=== PATIENT | male | born 1950 | race Caucasian/White ===

== ENCOUNTER → 2018-02-19 | Outpatient (CLI) | payer OTHER | LOC: FIMAGING 08:08 | PROVIDERS: ATTEND Internal Medicine Pulmonary Disease | DX: K31.89 Other diseases of stomach and duodenum (principal); K21.9 Gastro-esophageal reflux disease without esophagitis; J98.6 Disorders of diaphragm ==

== ENCOUNTER 2018-04-14 09:09 | Observation (INO) | payer OTHER ==
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
[2018-04-14] MEDS ORDERED: HEPARIN 1000 UNIT/1 ML MDV ONE (09:15)
[2018-04-14] MEDS ORDERED: BUPIVACAINE 0.25% 30 ML SDV ONE (09:15)
[2018-04-14] MEDS ORDERED: ceFAZolin 1 GM/5 ML SYR ONE (09:16)
[2018-04-14] MEDS ORDERED: cefOXitin SODIUM 2 GM in NS 100 ML IV ONE (09:17)
[2018-04-14] MEDS ORDERED: LR 1,000 ML IV ONE (09:18)
--- NOTE | 2018-04-14 10:09 | PDHPUP ---
History & Physical Update H&P update statement: This history and physical update is based on an assessment of the patient which was completed after admission or registration (within 24 hours), but prior to the surgery/procedure. H&P update: H&P reviewed & patient examined, no change in patient's condition since H&P completed
[2018-04-14] MEDS ORDERED: MIDAZOLAM 2 MG/2 ML VIAL IVP ONE (10:22)
--- NOTE | 2018-04-14 10:22 | PDANEPAE ---
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 seasonal allergies - Neurologic History Hx Cerebrovascular Accident: No Hx Seizures: No Hx Dementia: No - Endocrine History Hx Diabetes: No - Renal History Hx Renal Disorders: No - Liver History Hx Hepatic Disorders: No - Neurological & Psychiatric Hx Hx Neurological and Psychiatric Disorders: No - Cancer History Hx Cancer: No - Congenital Disorder History Hx Congenital Disorders: No - GI History Hx Gastrointestinal Disorders: Yes Gastrointestinal History Comment: reflux - Other Health History Other Health History: none - Chronic Pain History Chronic Pain: Yes (left knee) - Surgical History Prior Surgeries: none ANE Review of Systems Review of systems is: negative Review of Systems: - Exercise capacity Exercise capacity: >=4 METS METS (RN): 5 METS ANE Patient History - Allergies Allergies/Adverse Reactions: lidocaine Allergy (Verified 04/10/18 11:31) Rash trameel inj Allergy (Uncoded 04/10/18 17:42) Rash - Home Medications Home medications: home medication list seen and reviewed Home Medications: Albuterol [Proventil Inhaler HFA (*)] 1 - 2 puffs IH DAILY PRN 04/10/18 [Last Taken 04/14/18 06:00] Aspirin [Aspirin 81mg (*)] 162 mg PO DAILY 04/10/18 [Last Taken 04/10/18] Herbals/Supplements -Info Only 1 ea PO DAILY 04/10/18 [Last Taken 04/10/18] Tamsulosin HCl [Flomax 0.4 MG (*)] 0.4 mg PO BID 04/10/18 [Last Taken 04/14/18 06:00] guaiFENesin [Mucinex 600 MG (*)] 600 mg PO BID PRN 04/10/18 [Last Taken 04/12/18 ] Ranitidine HCl 04/14/18 [Last Taken 04/14/18 06:00] - NPO status NPO Status: no food or drink >8 hours NPO Since - Liquids (Date): 04/14/18 NPO Since - Liquids (Time): 06:00 NPO Since - Solids (Date): 04/13/18 NPO Since - Solids (Time): 19:30 - Smoking Hx Smoking Status: Never smoked - Family Anes Hx Family Hx Anesthesia Complications: none ANE Labs/Vital Signs - Vital Signs Vital Signs: reviewed preoperatively; see RN documention for details Blood Pressure: 100/76 Heart Rate: 64 Respiratory Rate: 16 O2 Sat (%): 93 Height: 182.88 cm Weight: 81.193 kg ANE Physical Exam - Airway Neck exam: FROM Mallampati Score: Class 1 Mouth exam: normal dental/mouth exam - Pulmonary Pulmonary: no respiratory distress - Cardiovascular Cardiovascular: regular rate and rhythym - ASA Status ASA Status: II ANE Anesthesia Plan Anesthesia Plan: general endotracheal anesthesia
[2018-04-14] MEDS ORDERED: fentaNYL 250 MCG/5 ML INJ ONE (10:26)
[2018-04-14] MEDS ORDERED: PROPOFOL/EMULSION 500 MG/50 ML BOTTLE IV ONE (10:27)
[2018-04-14] MEDS ORDERED: ONDANSETRON 4 MG/2 ML VIAL ONE (10:53)
[2018-04-14] MEDS ORDERED: DEXAMETHASONE 4 MG/ML VIAL ONE (10:53)
[2018-04-14] MEDS ORDERED: ePHEDrine SULFATE 25 MG/5 ML SYR ONE (11:12)
[2018-04-14] MEDS ORDERED: PHENYLEPHRINE HCL 100 MCG/ML SYR ONE (11:23)
[2018-04-14] MEDS ORDERED: SUGAMMADEX SODIUM 200 MG/2 ML VIAL IVP ONE (12:38)
[2018-04-14] MEDS ORDERED: KETOROLAC 30 MG/1 ML SDV ONE (12:41)
--- NOTE | 2018-04-14 12:58 | POSTOPPROG ---
Post Op Note Date of Operation: 04/14/18 Surgeon: Josh Avila [employer] Shop Attendant: Partha Anesthesiologist: Curtis Anesthesia: GET(General Endotracheal) Pre-op Diagnosis: Gastric volvulus Post-op Diagnosis: same Indication: Cough Procedure: Lap gastropexy Findings: No significant volvulus Inf/Abcess present in the surg proc area at time of surgery?: No Depth: Organ Space EBL: Minimal
[2018-04-14] MEDS ORDERED: ACETAMINOPHEN 325 MG TAB PO PRN (13:00)
[2018-04-14] MEDS ORDERED: oxyCODONE IR 5 MG TAB PO PRN ×2 (13:01→13:14)
[2018-04-14] MEDS ORDERED: ONDANSETRON 4 MG/2 ML VIAL IVP PRN ×2 (13:01→13:14)
[2018-04-14] MEDS ORDERED: ONDANSETRON DISINTEGRATING 4 MG TAB PO PRN (13:01)
[2018-04-14] MEDS ORDERED: NALOXONE HCL 0.4 MG/ML INJ IVP PRN (13:14)
[2018-04-14] MEDS ORDERED: fentaNYL 100 MCG/2 ML INJ ONE (13:14)
[2018-04-14] MEDS ORDERED: fentaNYL 100 MCG/2 ML INJ IVP PRN (13:14)
[2018-04-14] MEDS ORDERED: HYDROCODONE/APAP 5/325 TAB PO PRN (13:14)
[2018-04-14] MEDS ORDERED: HYDROmorphONE/DILAUDID 1 MG/ML INJ IVP PRN (13:14)
[2018-04-14] MEDS ORDERED: ALBUTEROL 3 ML DEYVIAL IH PRN (13:14)
[2018-04-14] MEDS ORDERED: NS 1,000 ML IV SCH (13:15)
[2018-04-14 15:44] VITALS: BP 106/75
--- NOTE | 2018-04-14 15:55 | POSTANESTH ---
Post Anesthetic Evaluation Cardiovascular Status: Normal, Stable Respiratory Status: Normal, Stable Level of Consciousness/Mental Status: Can Participate in Eval Pain Control: Adequate, Prn Tx Ordered Nausea/Vomiting Control: Adequate, Prn Tx Ordered Complications Possibly Related to Anesthesia: None Noted
--- NOTE | 2018-04-14 17:44 | SOAPPROG ---
SOAP Progress Note Assessment/Plan: Assessment: POSTOP GASTROPEXY: DOING WELL,/TOLERATING LIQUIDS, AFEBRILE, MINIMAL PAIN/ CHEST X-RAY OKAY Plan: HOME TONIGHT/INSTRUCTIONS GIVEN 04/14/18 17:42 Objective: Vital Signs Temp Pulse Resp BP Pulse Ox 35.6 C L 58 L 14 106/75 92 04/14/18 15:49 04/14/18 15:43 04/14/18 15:43 04/14/18 15:43 04/14/18 15:43 04/13/18 04/14/18 04/15/18 05:59 05:59 05:59 Intake Total 800 Output Total 300 Balance 500 ICD10 Worksheet Patient Problems: Problems Problem Status Onset Chronic gastric volvulus Acute - ICD10 Problem Qualifiers (1) Chronic gastric volvulus
--- NOTE | 2018-04-24 14:38 | GOP ---
[f rep st] OPERATIVE REPORT DATE OF OPERATION: 04/14/2018 SURGEON: Josh Avila MD PHARMACY TECHNICIAN INFUSION: Agatha Chavis NP. ANESTHESIOLOGIST: Dr. Acevedo. PREOPERATIVE DIAGNOSIS: Partial gastric volvulus, asymptomatic. POSTOPERATIVE DIAGNOSIS: Partial gastric volvulus, asymptomatic. PROCEDURE PERFORMED: Laparoscopic gastropexy. FINDINGS: The patient was found to have a markedly elevated right diaphragm in which the stomach rot ates up into that void. However, there were no ischemic changes or tightness or any definite volvulu s of the stomach on today's evaluation. ESTIMATED BLOOD LOSS: Negligible. DESCRIPTION OF PROCEDURE: The patient was taken to the operating room where he received a satisfacto ry general endotracheal anesthesia by Dr. Acevedo. He was placed in the supine position in a split le g manner, prepped and draped in the usual sterile fashion. A periumbilical incision was made. A Betsy ess needle inserted. Pneumoperitoneum was established. Trocar was introduced. Laparoscope introduc ed. Good visualization was obtained. Two other trocars were placed in the abdomen under direct visi on. The stomach was elevated up. It appeared to be quite mobile, but there were no ischemic changes or evidence of any hard twist. The GE junction was identified, as was the pylorus, and then the sto mach greater curvature was brought up to the anterior abdominal wall where it was pexied with multipl e interrupted 0 Ethibond sutures. This extended almost up to the gastroesophageal junction and certa inly included the cardia. Hemostasis was assured. Pneumoperitoneum was released. Trocars removed u nder direct vision. He tolerated the procedure quite well. Trocar sites were closed with 4-0 Vicryl subcuticular sutures and were infiltrated with 0.5% Marcaine. He tolerated the procedure well. COMPLICATIONS: None. DISPOSITION: He was taken to recovery room in good condition and reported to be . /[id number]/MODL
== END 2018-04-14 19:14 | disposition home or self-care (01) ==
LOC: F3N 09:09 → F3E 14:04
PROVIDERS: ADMIT Surgery; ATTEND Surgery
PROC: 0DV44ZZ Restriction of Esophagogastric Junction, Percutaneous Endoscopic Approach (ICD-10-PCS; principal; 2018-04-14 10:30)
DX: K31.89 Other diseases of stomach and duodenum (principal); K21.9 Gastro-esophageal reflux disease without esophagitis; J45.909 Unspecified asthma, uncomplicated
CPT/HCPCS: 43280; 71045; G0378; J0694; J1100; J1885; J2250; J2370; J2405; J2704; J3010

== ENCOUNTER 2018-11-24 18:34 | Emergency (ER) | payer OTHER ==
[2018-11-24 18:43] VITALS: BP 123/84
--- NOTE | 2018-11-24 19:13 | EDPHY ---
H & P Stated Complaint: floaters and flickering lights l eye since yesterday at 1pm Time Seen by Provider: 11/24/18 19:01 HPI/ROS: CHIEF COMPLAINT: Visual changes left eye HISTORY OF PRESENT ILLNESS: The patient is a 68-year-old healthy man with painless vision changes in his left eye that began yesterday around 1:00 a.m.. He states that he had a normal eye exam 6 months ago. He yesterday he noticed some flashing lights and dark spots floating in his left eye. That persisted today. He has called his writing tutor and has an appointment for tomorrow 10 :[address] Gerardo Garibay. He has not had any trauma. He has not had any discharge. No foreign body sensation. He is worried about his eye pressure. No headache. No buddhism area pain. No claudication. No recent colds or fevers. Severity: Moderate Modifying factors: None REVIEW OF SYSTEMS: Constitutional: denies: chills, fever, recent illness, recent injury EENTM: See HPI Respiratory: denies: cough, shortness of breath Cardiac: denies: chest pain, irregular heart rate, lightheadedness, palpitations Gastrointestinal/Abdominal: denies: abdominal pain, diarrhea, nausea, vomiting, blood streaked stools Genitourinary: denies: dysuria, frequency, hematuria, pain Musculoskeletal: denies: joint pain, muscle pain Skin: denies: lesions, rash, jaundice, bruising Neurological: denies: headache, numbness, paresthesia, tingling, dizziness, weakness Hematologic/Lymphatic: denies: blood clots, easy bleeding, easy bruising Immunologic/allergic: denies: HIV/AIDS, transplant 10 systems reviewed and negative except as noted EXAM: GENERAL: Well-appearing, well-nourished and in no acute distress. HEAD: Atraumatic, normocephalic. EYES: Pupils equal round and reactive to light, extraocular movements intact, sclera anicteric, conjunctiva are normal. Retina visualized on the right without difficulty with panoptic. Some red was visualized on the left but not all. There is a building dark spot on the lower half. Ultrasound is performed and it appears that there is particles of blood floating in the vitreous. No obvious detachment of the retina. The clots do moved and shift when he looks left and right. His visual acuity is 20/25 in the right and 2 blurry to assess in the left. Checked pressures with new Yamil-Pen and average of 15 on the right 16 on the left. ENT: TMs normal, nares patent, oropharynx clear without exudates. Moist mucous membranes. NECK: Normal range of motion, supple without lymphadenopathy or JVD. LUNGS: Breath sounds clear to auscultation bilaterally and equal. No wheezes rales or rhonchi. HEART: Regular rate and rhythm without murmurs, rubs or gallops. ABDOMEN: Soft, nontender, normoactive bowel sounds. No guarding, no rebound. No masses appreciated. BACK: No CVA tenderness, no spinal tenderness, step-offs or deformities EXTREMITIES: Normal range of motion, no pitting or edema. No clubbing or cyanosis. NEUROLOGICAL: Cranial nerves II through XII grossly intact. Normal speech, normal gait. 5/5 strength, normal movement in all extremities, normal sensation , normal reflexes PSYCH: Normal mood, normal affect. SKIN: Warm, dry, normal turgor, no visible rashes or lesions. Source: Patient, Family Exam Limitations: No limitations - Personal History Current Tetanus Diphtheria and Acellular Pertussis (TDAP): Yes - Medical/Surgical History Hx Asthma: Yes Hx Chronic Respiratory Disease: Yes Hx Diabetes: No Hx Cardiac Disease: Yes Hx Renal Disease: No Hx Cirrhosis: No Hx Alcoholism: No Hx HIV/AIDS: No Hx Splenectomy or Spleen Trauma: No Other PMH: cardiac event - Family History Significant Family History: No pertinent family hx - Social History Smoking Status: Never smoked Alcohol Use: None Constitutional: Initial Vital Signs Temperature (C) 36.5 C 11/24/18 18:40 Heart Rate 60 11/24/18 18:40 Respiratory Rate 18 11/24/18 18:40 Blood Pressure 123/84 H 11/24/18 18:40 O2 Sat (%) 94 11/24/18 18:40 O2 Delivery Mode Room Air Allergies/Adverse Reactions: No Known Allergies Allergy (Unverified 11/24/18 18:38) Home Medications: Medication Instructions Recorded Albuterol [Proventil Inhaler HFA 1 - 2 puffs IH DAILY PRN 04/10/18 (*)] Aspirin [Aspirin 81mg (*)] 162 mg PO DAILY 04/10/18 Herbals/Supplements -Info Only 1 ea PO DAILY 04/10/18 Tamsulosin HCl [Flomax 0.4 MG (*)] 0.4 mg PO BID 04/10/18 guaiFENesin [Mucinex 600 MG (*)] 600 mg PO BID PRN 04/10/18 Ranitidine HCl [Zantac 75] 75 mg PO DAILY 04/14/18 Medical Decision Making ED Course/Re-evaluation: The patient on exam and by history appears to have a vitreous detachment or vitreous hemorrhage. He has a follow-up appointment with his writing tutor tomorrow. I have paged them for consultation. There are no specific treatments at this time in the ER. He is not diabetic. Differential Diagnosis: Partial list of the Differential diagnosis considered include but were not limited to; vitreous detachment, retinal detachment, vitreous hemorrhage and although unlikely based on the history and physical exam, I also considered foreign body, optic neuritis, CVA, central retinal vein occlusion. I discussed these differential diagnoses and the plan with the patient as well as the usual and expected course. The patient understands that the diagnosis is provisional and that in medicine we are not always correct and that further workup is often warranted. Usual and customary warnings were given. All of the patient's questions were answered. The patient was instructed to return to the emergency department should the symptoms at all worsen or return, otherwise to followup with the physician as we discussed. Departure - Departure Disposition: Home, Routine, Self-Care Clinical Impression: Vitreous hemorrhage of left eye Condition: Fair Instructions: Visual Floaters (ED) Referrals: MERVAT MANCIA MD [Other] - As per Instructions gerardo caraballo [Other] - 1 day without fail
== END 2018-11-24 19:36 | disposition home or self-care (01) ==
DX: H57.89 Other specified disorders of eye and adnexa (principal)